=== PATIENT | female | born 1985 | race Caucasian/White ===

== ENCOUNTER 2017-10-11 13:45 | Emergency (ER) | payer OTHER ==
[~2017-10-11] VITALS: Ht 165.1 cm; Wt 81.7 kg
[~2017-10-11 13:45] MED LIST: ALBU90OI INH; AMIT50 PO; AMOX875 PO; AZIT250 PO; BIRTH CONTROL; DULO30 PO; HYDACE5 PO; PRED10 PO; PRED20 PO; PROCODE120 PO
[2017-10-11] MEDS ORDERED: Veetids 500500 MG PO (14:52)
== END 2017-10-11 14:55 | disposition home or self-care (01) ==
LOC: ER 13:45
DX: J02.0 Streptococcal pharyngitis (principal); F17.200 Nicotine dependence, unspecified, uncomplicated
CPT/HCPCS: 87430; 99282

== ENCOUNTER 2020-02-12 14:45 | Emergency (ER) | payer OTHER ==
[~2020-02-12] VITALS: Ht 162.6 cm; Wt 99.8 kg
[~2020-02-12 14:45] MED LIST changes: +Veetids 500500 MG PO
[2020-02-12 15:37] LABS: BASOPHILS ABSOLUTE AUTO 0.08 K/mm3 (0.00-0.23); BASOPHILS PERCENT AUTO 1 % (0-2); EOSINOPHILS ABSOLUTE AUTO 0.19 K/mm3 (0.00-0.68); EOSINOPHILS PERCENT AUTO 2 % (0-6); Hematocrit 44.7 % (33.0-51.0); Hemoglobin 13.5 g/dL (11.5-16.0); IMMATURE GRAN ABSOLUTE AUTO 0.04 K/mm3 (0.00-0.10); IMMATURE GRAN PERCENT AUTO 0 % (0-1); LYMPHOCYTES ABSOLUTE AUTO 2.17 K/mm3 (0.84-5.20); LYMPHOCYTES PERCENT AUTO 20 % (21-46); MONOCYTES ABSOLUTE AUTO 0.99 K/mm3 (0.16-1.47); MONOCYTES PERCENT AUTO 9 % (4-13); Mean Corpuscular HGB Conc 30.2 g/dL (31.5-36.5); Mean Corpuscular Volume 83 fL (80-100); NEUTROPHILS PERCENT AUTO 68 % (41-73); Platelet Count 337 K/mm3 (150-400); RDW Coefficient Variation 15.9 % (11.7-14.2); White Blood Cell Count 10.77 K/mm3 (4.00-11.30)
[2020-02-12 15:43] LABS: Source, Urine Voided
[2020-02-12 15:59] LABS: Bilirubin, Urine Neg (Neg); Blood, Urine Neg (Neg); Glucose Qualitative, Urine Neg (Neg); Ketones, Urine Neg (Neg); Leukocyte Esterase, Urine 1+ (Neg); Nitrite, Urine Neg (Neg); Protein, Urine 1+ (Neg); Urobilinogen, Urine NORM (Normal)
[2020-02-12 16:08] LABS: Alanine Aminotransfer (ALT/SGP 21 U/L (12-78); Albumin, Blood 3.3 g/dL (3.4-5.0); Albumin/Globulin Ratio 0.7 (0.8-1.8); Alk Phos 93 U/L (50-136); Anion Gap 8 mmol/L (6-16); Aspartate Aminotrans (AST/SGOT 21 U/L (12-37); Beta HCG, Quantitative, Serum <1 mIU/mL (0-3); Bilirubin, Total 0.3 mg/dL (0.1-1.0); Blood Urea Nitrogen 8 mg/dL (8-24); Bun/Creatinine Ratio 12.1 (12.0-20.0); CO2, Blood 24 mmol/L (21-32); Chloride, Blood 110 mmol/L (98-108); Creatinine, Blood 0.66 mg/dL (0.40-1.00); Globulin, Blood 4.5 g/dL (2.2-4.0); Glomerular Filtration Rate >60 (60-); Glucose, Blood 108 mg/dL (70-99); Sodium, Blood 142 mmol/L (136-145); Total Protein, Blood 7.8 g/dL (6.4-8.2)
[2020-02-12 16:28] LABS: Appearance, Urine Hazy (Clear); Color, Urine Pale Yellow (P-Yellow)
[2020-02-12 16:30] LABS: Bacteria Many /hpf; Squamous Epithelial Cells Few /hpf (Few)
[2020-02-12] MEDS ORDERED: ONDA4ODT SL (16:42)
[2020-02-12] MEDS ORDERED: CEFD300 PO (16:42)
[2020-02-12] MEDS ORDERED: IBUP400 PO (16:43)
== END 2020-02-12 17:22 | disposition home or self-care (01) ==
LOC: ER 14:45
PROVIDERS: Emergency Medicine
DX: R10.9 Unspecified abdominal pain (principal); F17.200 Nicotine dependence, unspecified, uncomplicated
CPT/HCPCS: 36415; 76705; 80053; 81001; 83690; 84702; 85025; 87086; 96361; 96365; 96375; 99284-25; J0696; J1170; J1885; J2405; J7030

== ENCOUNTER 2025-04-28 21:41 | Inpatient (IN) | payer OTHER ==
[~2025-04-28] VITALS: Ht 165.1 cm; Wt 102.6 kg
[~2025-04-28 21:41] MED LIST changes: +CEFD300 PO; +IBUP400 PO; +ONDA4ODT SL
[2025-04-28] MEDS ORDERED: CeFAZolin Sodium 1,000 MG in NS 50 ML IV ONE (22:20)
[2025-04-28] MEDS ORDERED: Ketorolac Tromethamine 30mg Vial IV ONE (22:20)
[2025-04-28] MEDS ORDERED: NS 1,000 ML IV SCH (22:20)
[2025-04-28 22:23] LABS: BASOPHILS ABSOLUTE AUTO 0.06 K/mm3 (0.00-0.23); BASOPHILS PERCENT AUTO 1 % (0-2); EOSINOPHILS ABSOLUTE AUTO 0.12 K/mm3 (0.00-0.68); EOSINOPHILS PERCENT AUTO 1 % (0-6); Hematocrit 37.3 % (33.0-51.0); Hemoglobin 11.0 g/dL (11.5-16.0); IMMATURE GRAN ABSOLUTE AUTO 0.05 K/mm3 (0.00-0.10); IMMATURE GRAN PERCENT AUTO 0 % (0-1); LYMPHOCYTES ABSOLUTE AUTO 1.51 K/mm3 (0.84-5.20); LYMPHOCYTES PERCENT AUTO 12 % (21-46); MONOCYTES ABSOLUTE AUTO 0.94 K/mm3 (0.16-1.47); MONOCYTES PERCENT AUTO 8 % (4-13); Mean Corpuscular HGB Conc 29.5 g/dL (31.5-36.5); Mean Corpuscular Volume 73 fL (80-100); NEUTROPHILS ABSOLUTE AUTO 9.72 K/mm3 (1.96-9.15); NEUTROPHILS PERCENT AUTO 78 % (41-73); NRBC ABSOLUTE 0.00 K/mm3 (0.00-0.02); NRBC Auto 0.0 /100 WBC (0.0-0.2); Platelet Count 309 K/mm3 (150-400); RDW Coefficient Variation 17.1 % (11.7-14.2); RDW Standard Deviation 45.6 fL (35.1-46.3)
[2025-04-28 22:35] LABS: Alanine Aminotransfer (ALT/SGP 35.0 U/L (12-78); Albumin, Blood 2.7 g/dL (3.4-5.0); Albumin/Globulin Ratio 0.6 (0.8-1.8); Anion Gap 9.0 mmol/L (3-11); Aspartate Aminotrans (AST/SGOT 59.0 U/L (12-37); Bilirubin, Total 0.2 mg/dL (0.1-1.0); Blood Urea Nitrogen 12.0 mg/dL (8-24); C-REACTIVE PROTEIN, EXT RANGE 15.6 mg/dL (0.000-0.300); CO2, Blood 25.0 mmol/L (21-32); Calcium, Blood 8.5 mg/dL (8.5-10.1); Chloride, Blood 107.0 mmol/L (98-108); Creatinine, Blood 0.83 mg/dL (0.40-1.00); Globulin, Blood 4.5 g/dL (2.2-4.0); Glucose, Blood 163.0 mg/dL (70-99); Potassium, Blood 3.6 mmol/L (3.5-5.5); Sodium, Blood 137.0 mmol/L (136-145); Total Protein, Blood 7.2 g/dL (6.4-8.2)
[2025-04-28 23:55] VITALS: BP 130/84
--- NOTE | 2025-04-29 00:32 | NUR ---
TRANSFER NOTE: PT AOX4 ORIENTED TO CALL LIGHT AND ABLE TO MAKE NEEDS KNOWN. ABLE TO STAND PIVOT INTO BED FROM ED.
[2025-04-29 04:17] VITALS: BP 108/73
--- NOTE | 2025-04-29 04:25 | NUR ---
SHIFT SUMMARY: PT AOX4 1PA/SBA STAND PIVOT TO BSC. CALLS APPROPRIATELY AND ABLE TO MAKE NEEDS KNOWN. PT STATES PAIN IN RLE ON MOVEMENT AND TOUCH BUT AT REST IS OKAY IF ELEVATED. PT TOLERATING MEDICATIONS WELL. NO ACUTE OVERNIGHT EVENTS. CELLULITIS LOOKS GOOD SEEMS TO HAVE DECREASED FROM THE EDGES DRAWN ON BY LEONARDO. PT IN BED RESTING, BED IN LOWEST POSITION, CALL LIGHT IN REACH. CONTINUING CARE.
[2025-04-29] MEDS ORDERED: Ketorolac Tromethamine 15mg Vial IV PRN (04:45)
[2025-04-29 05:49] LABS: BASOPHILS ABSOLUTE AUTO 0.04 K/mm3 (0.00-0.23); BASOPHILS PERCENT AUTO 0 % (0-2); EOSINOPHILS ABSOLUTE AUTO 0.16 K/mm3 (0.00-0.68); EOSINOPHILS PERCENT AUTO 2 % (0-6); Hematocrit 32.8 % (33.0-51.0); Hemoglobin 9.8 g/dL (11.5-16.0); IMMATURE GRAN ABSOLUTE AUTO 0.04 K/mm3 (0.00-0.10); IMMATURE GRAN PERCENT AUTO 0 % (0-1); LYMPHOCYTES ABSOLUTE AUTO 1.82 K/mm3 (0.84-5.20); LYMPHOCYTES PERCENT AUTO 20 % (21-46); MONOCYTES ABSOLUTE AUTO 1.06 K/mm3 (0.16-1.47); MONOCYTES PERCENT AUTO 12 % (4-13); Mean Corpuscular HGB Conc 29.9 g/dL (31.5-36.5); Mean Corpuscular Volume 73 fL (80-100); NEUTROPHILS ABSOLUTE AUTO 6.06 K/mm3 (1.96-9.15); NEUTROPHILS PERCENT AUTO 66 % (41-73); NRBC ABSOLUTE 0.00 K/mm3 (0.00-0.02); NRBC Auto 0.0 /100 WBC (0.0-0.2); Platelet Count 277 K/mm3 (150-400); RDW Coefficient Variation 17.1 % (11.7-14.2); RDW Standard Deviation 45.3 fL (35.1-46.3)
[2025-04-29 06:10] LABS: Anion Gap 8.0 mmol/L (3-11); Blood Urea Nitrogen 16.0 mg/dL (8-24); CO2, Blood 24.0 mmol/L (21-32); Calcium, Blood 8.3 mg/dL (8.5-10.1); Chloride, Blood 111.0 mmol/L (98-108); Creatinine, Blood 0.84 mg/dL (0.40-1.00); Glucose, Blood 100.0 mg/dL (70-99); Potassium, Blood 3.4 mmol/L (3.5-5.5); Sodium, Blood 140.0 mmol/L (136-145)
[2025-04-29 07:07] VITALS: BP 119/74
[2025-04-29] MEDS ORDERED: CeFAZolin Sodium 1,000 MG in NS 50 ML IV SCH (08:00)
[2025-04-29] MEDS ORDERED: Enoxaparin 40 MG/0.4 ML SYR SC SCH (09:00)
[2025-04-29] MEDS ORDERED: Lactobacil 2-S.Thermo-Bifido 1 1 Cap PO SCH (09:00)
[2025-04-29] MEDS ORDERED: NS 250 ML IV PRN (09:00)
[2025-04-29 11:47] LABS: Ferritin, Serum 81.0 ng/mL (8-252); Total Iron Binding Capacity 306.0 ug/dL (250-450)
[2025-04-29 15:43] VITALS: BP 130/87
[2025-04-29] MEDS ORDERED: CeFAZolin Sodium 2,000 MG in NS 100 ML IV SCH (16:00)
[2025-04-29] MEDS ORDERED: CEPH500 PO (17:27)
[2025-04-29] MEDS ORDERED: SULTRIDS PO (17:27)
--- NOTE | 2025-04-29 18:01 | NUR ---
SHIFT SUMMARY: PT A&O X4. CELLULITIS ON RLE OUTLINED AND DOES NOT APPEAR TO BE GOING OUTSIDE OF LINE. PT STATED SHE IS HAVING SOME REDNESS TO RIGHT THIGH. DR. LEWIS IN ROOM TO SHOW NEW REDNESS. PT RECEIVING IV ABX W/O COMPLICATIONS. PT EDUCATED BY THIS RN AND ADDITIONAL STAFF ON PROTOCOL TO NOT GO OUTSIDE OF BUILDING WITH VISITORS. PT STATED SHE WAS GOING OUTSIDE WITH THE FIRST TIME AND WOULD STAY INSIDE OF BUILDING WITH SECOND SET OF VISITORS. DENIED NEED FOR PAIN MEDICATION FOR RLE. CALL LIGHT IN REACH. BED IN LOWEST POSITION.
[2025-04-29 19:30] VITALS: BP 115/66
[2025-04-30 04:24] VITALS: BP 118/83
--- NOTE | 2025-04-30 04:44 | NUR ---
SHIFT SUMMARY: PT AOX4 IND IN THE ROOM. CALLS APPROPRIATELY AND ABLE TO MAKE NEEDS KNOWN. PT A LITTLE BIT MORE AGITATED THAN NORMAL BUT MAY BED DUE TO NICOTINE WITHDRAWAL. STILL REFUSING NICOTINE PATCH. PT ABLE TO AMBULATE IND THIS EVENING. PT TOLERATING MEDICAIONS WELL. NO ACUTE OVERNIGHT EVENTS. PT IN BED RESTING, BED IN LOWEST POSITION, CALL LIGHT IN REACH. CONTINUING CARE.
--- NOTE | 2025-04-30 06:17 | NUR ---
NURSING NOTE: PT AGITATED DUE TO BEING WOKEN UP BY LOGISTICS ENGINEER AND LAB, PT REQUESTS TO LEAVE. SAID SHE WAS "OVER IT" AND "DONT WANT TO BE HERE ANYMORE". PTS CONDITION HAS IMPROVED, TOLD SHE WAS LIKELY TO DISCHARGE TODAY, BUT STATED SHE WANTED TO LEAVE NOW. PROVIDER NOTIFIED. PT SIGNED AMA FORMS AND AMBULATED TO THE ELEVATORS. CHARGE NURSE NOTIFIED.
== END 2025-04-30 06:13 | disposition left against medical advice (07) | DRG 603 ==
LOC: ER 21:41 → MEDS 23:17
PROVIDERS: Emergency Medicine; Student in an Organized Health Care Education/Training Program; ADMIT Student in an Organized Health Care Education/Training Program
DX: L03.115 Cellulitis of right lower limb (principal); E87.6 Hypokalemia; E66.9 Obesity, unspecified; F17.210 Nicotine dependence, cigarettes, uncomplicated; Z53.29 Procedure and treatment not carried out because of patient's decision for other reasons; Z60.2 Problems related to living alone; Z88.1 Allergy status to other antibiotic agents; Z79.899 Other long term (current) drug therapy; Z79.2 Long term (current) use of antibiotics; Z79.1 Long term (current) use of non-steroidal anti-inflammatories (NSAID); Z68.39 Body mass index [BMI] 39.0-39.9, adult; Z98.51 Tubal ligation status
CPT/HCPCS: 36415; 73590; 80048; 80053; 82607; 82728; 82746; 83036; 83540; 83550; 83605; 85025; 86140; 87040; 96361; 96374; 99284-25; A9270; J0690; J1885; J7030; J7050

== ENCOUNTER 2025-05-17 11:44 | Emergency (ER) | payer OTHER ==
[~2025-05-17] VITALS: Ht 165.1 cm; Wt 102.1 kg
[~2025-05-17 11:44] MED LIST changes: +CEPH500 PO; +SULTRIDS PO
[2025-05-17 12:13] VITALS: BP 141/97
== END 2025-05-17 14:39 | disposition left against medical advice (07) ==
LOC: ER 11:44
DX: R22.41 Localized swelling, mass and lump, right lower limb (principal); L53.9 Erythematous condition, unspecified; Z53.29 Procedure and treatment not carried out because of patient's decision for other reasons
CPT/HCPCS: 93971; 99283-25